=== PATIENT | male | born 1980 | race Caucasian/White ===

== ENCOUNTER 2016-12-21 23:20 | Emergency (ER) | payer BC ==
[~2016-12-21] VITALS: Ht 180.3 cm; Wt 96.9 kg
--- OUTSIDE RECORDS SUMMARY | 2016-12-21 23:24 | XMS REPORT | Referral Summary ---
Author Author [facility] Organization [facility] Address Unknown Phone Unavailable Care Team Providers Care Reel System Operator Name Role Phone Nelson Short Primary Care Physician [phone] Encounter [facility] [phone] Date(s): 06/15/16 - 06/15/16 [facility] [address] [place] [address] Discharge Disposition: 01-Home or Self Care Attending Physician: Elian Macedo MD Vital Signs No data available for this section Problem List No data available for this section Allergies, Adverse Reactions, Alerts No data available for this section Medications No data available for this section Results No data available for this section Immunizations No data available for this section Procedures No data available for this section Social History No data available for this section Assessment and Plan No data available for this section
--- OUTSIDE RECORDS SUMMARY | 2016-12-21 23:24 | XMS REPORT ---
Author Author Bo Short Organization [employer] Address Unknown Phone Unavailable Care Team Providers Care Pushcart Peddler Name Role Phone Bo Short CP Unavailable Allergies No Known Allergies Problems Problem Type Condition Code Onset Dates Condition Status Problem Cough 786.2 Active Problem Pharyngitis 462 Active Problem Pharyngitis J02.9 Active Problem Viral infection, in conditions classified elsewhere and of unspecified site 079.99 Active Problem Sinusitis, unspecified 461.9 Active Problem Sinusitis 473.9 Active Problem Skin tag 701.9 Active Medications No Known Medications Results No Known Results Summary Purpose [employer] Submission
--- OUTSIDE RECORDS SUMMARY | 2016-12-21 23:24 | XMS REPORT ---
Author Author Bo Short Organization [employer] Address Unknown Phone Unavailable Care Team Providers Care Associate Professor Of Automation Name Role Phone Bo Short CP Unavailable Allergies No Known Allergies Problems Problem Type Condition Code Onset Dates Condition Status Problem Sinusitis, unspecified 461.9 Active Problem Acute sinusitis, unspecified J01.90 Active Problem Cough 786.2 Active Problem Pharyngitis J02.9 Active Problem Skin tag 701.9 Active Problem Viral infection, in conditions classified elsewhere and of unspecified site 079.99 Active Problem Pharyngitis 462 Active Problem Sinusitis 473.9 Active Medications Medication Code System Code Instructions Start Date End Date Status Dosage Celexa [facility] [address]-06 20 MG Orally Once a day Aug 08, 2016 1 tablet Results No Known Results Summary Purpose [employer] Submission
--- OUTSIDE RECORDS SUMMARY | 2016-12-21 23:24 | XMS REPORT ---
Author Author Bo Short Organization [employer] Address Unknown Phone Unavailable Care Team Providers Care Director Database Name Role Phone Bo Short CP Unavailable Allergies, Adverse Reactions, Alerts Substance Reaction Event Type N.K.D.A. Info Not Available Non Drug Allergy Problems Problem Type Condition Code Onset Dates Condition Status Assessment Acute sinusitis, unspecified J01.90 Active Problem Sinusitis, unspecified 461.9 Active Assessment Pharyngitis J02.9 Active Problem Acute sinusitis, unspecified J01.90 Active Problem Cough 786.2 Active Problem Pharyngitis J02.9 Active Problem Skin tag 701.9 Active Problem Viral infection, in conditions classified elsewhere and of unspecified site 079.99 Active Problem Pharyngitis 462 Active Problem Sinusitis 473.9 Active Medications Medication Code System Code Instructions Start Date End Date Status Dosage Mucinex [facility] [address]-27 600 MG Orally every 12 hrs 1 tablet as needed Zithromax Z-Raymond [facility] [address]-17 250 MG Orally Once a day Sep 22, 2015 2 tablets on the first day, then 1 tablet daily for 4 days Procedures Procedure Coding System Code Date OFFICE VISITEST PT CPT-4 64623 Sep 22, 2015 Vital Signs Date/Time: Sep 22, 2015 Blood Pressure Systolic 124 mm Hg Height 71.8 in Weight 217 lbs Oximetry 98 % Cardiac Monitoring Heart Rate 80 /min Temperature 98.7 F Blood Pressure Diastolic 79 mm Hg BMI 29.59 Index Results No Known Results Summary Purpose [employer] Submission
--- OUTSIDE RECORDS SUMMARY | 2016-12-21 23:24 | XMS REPORT ---
Author Author Bo Short Organization [employer] Address Unknown Phone Unavailable Care Team Providers Care Maintenance Painter Name Role Phone Bo Short CP Unavailable Allergies No Known Allergies Problems Problem Type Condition ICD-9 Code Onset Dates Condition Status Problem Pharyngitis 462 Active Problem Sinusitis 473.9 Active Problem Cough 786.2 Active Problem Sinusitis, unspecified 461.9 Active Assessment Cough 786.2 Active Problem Skin tag 701.9 Active Problem Viral infection, in conditions classified elsewhere and of unspecified site 079.99 Active Medications Medication Code System Code Instructions Start Date End Date Status Dosage Medrol (Raymond) [facility] [address]-27 4 mg Orally daily Oct 13, 2014 Active as directed Results No Known Results Summary Purpose [employer] Submission
--- OUTSIDE RECORDS SUMMARY | 2016-12-21 23:24 | XMS REPORT ---
Author Author Bo Short Organization [employer] Address Unknown Phone Unavailable Care Team Providers Care Software Quality Specialist Name Role Phone Bo Short CP Unavailable Allergies No Known Allergies Problems Problem Type Condition ICD-9 Code Onset Dates Condition Status Problem Sinusitis 473.9 Active Problem Skin tag 701.9 Active Problem Pharyngitis 462 Active Problem Viral infection, in conditions classified elsewhere and of unspecified site 079.99 Active Problem Sinusitis, unspecified 461.9 Active Medications Medication Code System Code Instructions Start Date End Date Status Dosage Biaxin [facility] [address]-23 500 MG Orally Twice a day Aug 20, 2014 Active 1 tablet Cefdinir [facility] [address]-30 300 MG Orally BID Aug 12, 2014 Inactive 1 capsule Results No Known Results Summary Purpose [employer] Submission
--- OUTSIDE RECORDS SUMMARY | 2016-12-21 23:24 | XMS REPORT ---
Author Author Bo Short Organization [employer] Address Unknown Phone Unavailable Care Team Providers Care Bilingual Hr Generalist Name Role Phone Bo Short CP Unavailable [...]
[2016-12-22 00:03] VITALS: Ht 180.3 cm; Wt 96.9 kg
[2016-12-22] MEDS ORDERED: NO ROUTINE MEDS (00:38)
--- NOTE | 2016-12-22 00:40 | NUR ---
XRAY TO XRAY PER W/C
--- NOTE | 2016-12-22 00:47 | NUR ---
ROOM PT RETURNED TO ROOM 1 PER W/C FROM XRAY
--- NOTE | 2016-12-22 00:54 | NUR ---
BUPIVOCAINE BUPIVOCAINE USED LOCAL TO LACERATION BY DR SPANN
[2016-12-22] MEDS ORDERED: BUPIVACAINE 0.5% (5mg/ml) 30ml INJ SDV INFIL ONE (01:00)
--- NOTE | 2016-12-22 01:10 | NUR ---
STATUS PT REPORTS HIS LEFT RING FINGER IS GETTING NUMB AND TINGLING STILL HAS SOME FEELING AT THE LACERATION PT WATCHING TV AT BEDSIDE
--- NOTE | 2016-12-22 02:08 | NUR ---
OINT/DRSG HAND WASHED TRIPLE CARE OINT AND BANDAIDE TO WOUND PT WILVER WELL
--- NOTE | 2016-12-22 02:08 | ERPDOC ---
Departure Disposition Decision Date: Dec 22, 2016 Disposition Decision Time: 01:00 Disposition: 01 DISCHARGED HOME, SELF-CARE Impression Impression Impression: Primary Impression: Finger laceration Encounter type: initial encounter Qualified Codes: S61.219A - Laceration without foreign body of unspecified finger without damage to nail, initial encounter Severity: Mild Condition: Improved Seen By: Physician only Referrals: GONZALES RIOS (Family) 1 Week Patient Instructions: Finger Laceration (ED) Problems/Meds/Labs Reviewed?: Yes Medications reviewed and manag: Yes Additional Instructions: Discharge instructions given on hard-copy during system downtime. Follow up care ordered?: Yes Mental Status: Alert, Oriented HPI - Skin General General Chief Complaint: Laceration Stated Complaint: FINGER LAC Time Seen by Provider: 00:13 Source: patient Exam Limitations: no limitations HPI - Skin General Initial Comments 36yo man presents under duress to the ER for a laceration of his left, fourth digit. Pt was using a table saw earlier tonight with a jig that he had hastily modified. A part gave way, and pt lacerated his left finger. Pt had some difficulty getting the bleeding to stop, and his demanded that pt be evaluated. So, pt presented to the ER for evaluation. Occurred At: home Onset: Rapid Duration: 1-3 hrs Pain Scale: Now & Worst: 3/10 Severity: mild Location: hands 1 - Laceration Possible Cause: other Hx of Similar Symptoms: No Allergies: Coded Allergies: No Known Allergies (Unverified , 12/22/16) Past History Past Medical History Pt denies signifigant PMH Review of Systems Musculoskeletal General: pain, see HPI All other Systems All Other Systems: Reviewed and Negative Physical Exam General General Nourishment: well nourished, well developed, appears stated age, no acute distress, adult, thin Vitals and Pain First Documented Vital Signs Date Time Temp Pulse Resp B/P Pulse Ox O2 Delivery O2 Flow Rate FiO2 12/22/16 00:03 97.8 74 14 121/77 95 Room Air Weight: Kilograms: 96.900 Height (feet): 5 Height (inches): 11.00 Triage Pain Scale: Fastrak Hand/Forearm Hand/Forearm : Upper Extremity: Left Elbow: NOT FOUND: ecchymosis, erythema Forearm: NOT FOUND: ecchymosis, erythema Wrist: NOT FOUND: ecchymosis, erythema Hand: NOT FOUND: ecchymosis, erythema Fingers: cap refill <2sec ea digit, laceration (Over 4th digit), NOT FOUND: deformity, ecchymosis, erythema, impaired abduction, impaired adduction, impaired extension, impaired flexion, impaired grasp, nail avulsion, rotational deformity, soft touch intact, subungual hematoma, swelling, tender Comments Laceration/abrasion of palmar side of finger into dermis with small intrusion into subQ on medial side. Supervisory Exam Head: atraumatic Eyes: PERRL Nares: no exudate Neck: trachea midline Chest: symmetric Abdomen: non-distended Neurological: no abnormal movements Skin: pink, dry Psychological: alert, appropriate Differential Diagnoses Considering: Abrasion, Laceration, Other (avulsion, ligament laceration.) Progress Results/Orders Orders Procedure Category Date Status Time Hand Left 3 View RAD 12/22/16 Taken Bupivacaine 0.5% PHA 12/22/16 Complete (Marcaine 0.5%) 01:00 Neomycin/Polymyxin/Bacitracin PHA 12/22/16 Complete (Neosporin 02:45 Medications Current ED Medications Bupivacaine HCl (Marcaine 0.5%) 150 mg O ONCE INFIL Last administered on t 00:54; Start 12/22/16 at 01:00; Stop 12/22/16 at 01:01; Status DC Neomycin/ Polymyxin/ Bacitracin (Neosporin) 1 applic O ONCE TOP Last administered on 12/22/16t 02:08; Start 12/22/16 at 02:45; Stop 12/22/16 at 02:45 ; Status DC Progress Progress After performing ring block of finger with 0.5% bupivacaine, thorough exploration of the wound was completed. Pt cut into his dermis and, in spots, into the subQ. Bleeding had stopped and pt had serous ooze. Plain films did not show involvement of bone. All tendons intact. Due to width of defect and loss of tissue between epidermis edges, will leave skin to heal through secondary intent. Wound is clean, without devitalized tissue; no indications for atbx at this time. Gave pt excellent wound care instructions and described natural hx so pt knows what to expect. Pt voiced understanding. F/u with PCM. Xray Xray : Xray: Hand L Interpretation: Normal, Discussed w/ Radiologist MARIA TERESA SPANN 17, 2017 01:07
--- NOTE | 2016-12-22 02:15 | NUR ---
INSTRUCTIONS DISMISSAL INSTRUCTIONS GIVEN TO PT VERBALIZED UNDERSTANDING OF ALL
[2016-12-22 02:16] VITALS: BP 121/77; PULSE 74; RESP 14; TEMP 97.8; O2SAT 95
--- NOTE | 2016-12-22 02:16 | NUR ---
DISMISS PT DISMISSED AMBULATORY WITH
[2016-12-22] MEDS ORDERED: NEOMYCIN/POLYM/BACITR OINT PACKET TOP ONE (02:45)
--- NOTE | 2016-12-22 09:14 | DI ---
EXAM: HAND LEFT 3 VIEW COMPARISON: None available. HISTORY: ITS.REASON: Saw blade vs finger . FINDINGS: There is no evidence for acute fracture, subluxation, or dislocation. No osseous abnormality is identified. IMPRESSION: Unremarkable exam. [place] [facility] [place]
== END 2016-12-22 02:16 | disposition home or self-care (01) ==
LOC: ED 23:20
DX: S61.215A Laceration without foreign body of left ring finger without damage to nail, initial encounter (principal); W29.8XXA Contact with other powered hand tools and household machinery, initial encounter; Y93.89 Activity, other specified; Y92.009 Unspecified place in unspecified non-institutional (private) residence as the place of occurrence of the external cause; Y99.8 Other external cause status
CPT/HCPCS: 64450; 73130; 99283; S0020